=== PATIENT | female | born 1980 | race Two or more races ===

== ENCOUNTER 2020-05-26 05:55 | Emergency (ER) | payer SELFPAY ==
[~2020-05-26] VITALS: Ht 170.2 cm; Wt 79.4 kg
[2020-05-26] MEDS ORDERED: LORazepam Inj 2mg/ml 1ml IV ONE (06:00)
[2020-05-26] MEDS ORDERED: Haloperidol 5mg/ml Inj IM ONE (06:00)
--- NOTE | 2020-05-26 06:20 | NUR ---
ED Nurse Note: pt brought by 68 into the ED due to agitated delirium. Pt accompanied by [employer]. pt is A&Ox1 and no sob. pt is on monitor; vitals are stable. Iv started; blood sent to the lab. Pt refused to give urine. Tried to straight cath the pt but she kept fighting; we will try later.
[2020-05-26 06:29] LABS: BASOPHILS % (AUTO) 0.8 % (0.0-2.0); EOSINOPHILS % (AUTO) 1.1 % (0.0-3.0); HEMATOCRIT 31.1 % (37.0-47.0); HEMOGLOBIN 9.2 G/DL (12.0-16.0); LYMPHOCYTES % (AUTO) 42.2 % (20.0-45.0); MEAN CORPUSCULAR VOLUME 80 FL (80-99); MONOCYTES % (AUTO) 8.9 % (1.0-10.0); PLATELET COUNT 321 K/UL (150-450); RED BLOOD COUNT 3.88 M/UL (4.20-5.40); WHITE BLOOD COUNT 6.1 K/UL (4.8-10.8)
[2020-05-26 06:31] VITALS: BP 132/72
--- NOTE | 2020-05-26 06:45 | NUR ---
ED Nurse Note: Pt refused to give urine.
[2020-05-26 06:50] LABS: ANION GAP 13 mmol/L (5-15); BLOOD UREA NITROGEN 18 mg/dL (7-18); CALCIUM 9.8 MG/DL (8.5-10.1); CARBON DIOXIDE 22 MMOL/L (21-32); CHLORIDE 107 MMOL/L (98-107); CREATININE 1.4 MG/DL (0.55-1.30); POTASSIUM 3.8 MMOL/L (3.5-5.1); SODIUM 142 MMOL/L (136-145)
[2020-05-26 06:58] LABS: ALANINE AMINOTRANSFERASE 25 U/L (12-78); ALBUMIN 3.6 G/DL (3.4-5.0); ALBUMIN/GLOBULIN RATIO 0.9 (1.0-2.7); ALKALINE PHOSPHATASE 100 U/L (46-116); ASPARTATE AMINO TRANSFERASE 36 U/L (15-37); BILIRUBIN,TOTAL 0.3 MG/DL (0.2-1.0)
--- NOTE | 2020-05-26 07:14 | NUR ---
HAND-OFF: Report given to ADARSH Smiley
--- NOTE | 2020-05-26 08:00 | Emergency Room Report ---
History of Present Illness General Chief Complaint: Behavioral Complaint Source: Patient Present Illness HPI patient brought in by paramedics accompanied by [employer] patient found acting bizzare, agitated patient not able to provide any input she is asking to eat and apple juice appears to be under the influence no reports of suicidal or homicidal thoughts HPI is limited initially secondary to patient ability to provide history Allergies: Coded Allergies: No Known Allergies (Unverified , 05/26/20) COVID-19 Screening Contact w/high risk pt: No Experienced COVID-19 symptoms?: No COVID-19 Testing performed [employer]: No Patient History Limited by: medical condition Pertinent Family History: unable to obtain Last Menstrual Period: n/a Reviewed Nursing Documentation: PMH: Agreed; PSxH: Agreed Nursing Documentation-PMH Past Medical History: No Stated History Review of Systems All Other Systems: limited Narrative limited secondary to patient presentation and ability to provide further input Physical Exam Vital Signs Date Time Temp Pulse Resp B/P (MAP) Pulse Ox O2 Delivery O2 Flow Rate FiO2 05/26/20 05:54 97.9 98 16 142/78 (99) 99 Room Air Sp02 EP Interpretation: reviewed, normal General Appearance: mild distress - agitated, speaking in a rapid pressured speach Head: normocephalic, atraumatic Eyes: bilateral eye PERRL, bilateral eye EOMI ENT: EOM grossly intact, normal pharynx Neck: supple, thyroid normal Respiratory: lungs clear, no respiratory distress, no retraction Cardiovascular #1: regular rate, rhythm Gastrointestinal: non tender, soft Genitourinary: no CVA tenderness Musculoskeletal: back normal, normal range of motion Neurologic: other - awake, makes, eye contact. agitated. asking to eat. Psychiatric: other - agitated as above Skin: no rash, palpation normal Lymphatic: no adenopathy Procedures Critical Care Time Critical Care Time 50 minutes, for multiple exams, reevaluations, concern for deterioration Medical Decision Making Diagnostic Impression: Primary Impression: Drug abuse ER Course given history and presentation, multiple differential entertained including, but not limited to drug psychosis, mental health psychosis, metabolic and neurological considerations patient is hemodynamically stable awake appropriate air way maintained extensive testing initiated patient requiring chemical sedation and will have reevaluation patient has become oriented and awake after prolonged observation in ED Eating and drinking patient was amphetamine positive and reports drug abuse. Refusing social work. denies any homicidal or suicidal thoughts and asking to be discharged After long observation, patient is awake and oriented. Has full decision making capacity and asking for discharge Labs Test 05/26/20 06:15 05/26/20 11:20 White Blood Count 6.1 K/UL (4.8-10.8) Red Blood Count 3.88 M/UL (4.20-5.40) Hemoglobin 9.2 G/DL (12.0-16.0) Hematocrit 31.1 % (37.0-47.0) Mean Corpuscular Volume 80 FL (80-99) Mean Corpuscular Hemoglobin 23.8 PG (27.0-31.0) Mean Corpuscular Hemoglobin Concent 29.7 G/DL (32.0-36.0) Red Cell Distribution Width 17.0 % (11.6-14.8) Platelet Count 321 K/UL (150-450) Mean Platelet Volume 7.5 FL (6.5-10.1) Neutrophils (%) (Auto) 47.0 % (45.0-75.0) Lymphocytes (%) (Auto) 42.2 % (20.0-45.0) Monocytes (%) (Auto) 8.9 % (1.0-10.0) Eosinophils (%) (Auto) 1.1 % (0.0-3.0) Basophils (%) (Auto) 0.8 % (0.0-2.0) Sodium Level 142 MMOL/L (136-145) Potassium Level 3.8 MMOL/L (3.5-5.1) Chloride Level 107 MMOL/L (98-107) Carbon Dioxide Level 22 MMOL/L (21-32) Anion Gap 13 mmol/L (5-15) Blood Urea Nitrogen 18 mg/dL (7-18) Creatinine 1.4 MG/DL (0.55-1.30) Estimat Glomerular Filtration Rate 42.1 mL/min (>60) Glucose Level 80 MG/DL (74-106) Calcium Level 9.8 MG/DL (8.5-10.1) Total Bilirubin 0.3 MG/DL (0.2-1.0) Aspartate Amino Transf (AST/SGOT) 36 U/L (15-37) Alanine Aminotransferase (ALT/SGPT) 25 U/L (12-78) Alkaline Phosphatase 100 U/L (46-116) Total Protein 7.5 G/DL (6.4-8.2) Albumin 3.6 G/DL (3.4-5.0) Globulin 3.9 g/dL Albumin/Globulin Ratio 0.9 (1.0-2.7) Salicylates Level 1.4 ug/mL (2.8-20) Acetaminophen Level < 2 MCG/ML (10-30) Serum Alcohol < 3 mg/dL Urine Color Pale yellow Urine Appearance Slightly cloudy Urine pH 7 (4.5-8.0) Urine Specific [place] 1.010 (1.005-1.035) Urine Protein Negative (NEGATIVE) Urine Glucose (UA) Negative (NEGATIVE) Urine Ketones 2+ (NEGATIVE) Urine Blood Negative (NEGATIVE) Urine Nitrite Negative (NEGATIVE) Urine Bilirubin Negative (NEGATIVE) Urine Urobilinogen Normal MG/DL (0.0-1.0) Urine Leukocyte Esterase Negative (NEGATIVE) Urine HCG, Qualitative Negative (NEGATIVE) Urine Opiates Screen Negative (NEGATIVE) Urine Barbiturates Screen Negative (NEGATIVE) Phencyclidine (PCP) Screen Negative (NEGATIVE) Urine Amphetamines Screen Positive (NEGATIVE) Urine Benzodiazepines Screen Negative (NEGATIVE) Urine Cocaine Screen Negative (NEGATIVE) Urine Marijuana (THC) Screen Negative (NEGATIVE) Rhythm Strip Diag. Results EP Interpretation: yes Rate: 77 Rhythm: NSR, no PVC's, no ectopy Last Vital Signs Date Time Temp Pulse Resp B/P (MAP) Pulse Ox O2 Delivery O2 Flow Rate FiO2 05/26/20 06:31 97.0 98 16 132/72 98 Room Air Status: improved Disposition: HOME, SELF-CARE Condition: Improved Referrals: NOT CHOSEN [facility]/MD,REFERRING (PCP) Additional Instructions: follow with above mentioned clinics. Stop using drugs. Return to ER for any assistance Richar Shah DO May 26, 2020 08:00
[2020-05-26 08:31] VITALS: BP 122/80
--- NOTE | 2020-05-26 08:37 | NUR ---
ED Nurse Note:pt. is sleeping in the room, no signs of distress noted
--- NOTE | 2020-05-26 11:08 | NUR ---
ED Nurse Note:tryed to wake up pt. and have her to void, she is not willing to wake up et
--- NOTE | 2020-05-26 11:31 | NUR ---
ED Nurse Note:urine sent to labs, food provided
[2020-05-26 11:42] LABS: APPEARANCE,URINE SLIGHTLY CLOUDY; BILIRUBIN, URINE NEGATIVE (NEGATIVE); COLOR,URINE PALE YELLOW; GLUCOSE, URINE (UA) NEGATIVE (NEGATIVE); KETONES,URINE 2+ (NEGATIVE); LEUKOCYTE ESTERASE ,URINE NEGATIVE (NEGATIVE); NITRITE,URINE NEGATIVE (NEGATIVE); PH,URINE 7 (4.5-8.0); PROTEIN,URINE NEGATIVE (NEGATIVE); UROBILINOGEN,URINE NORMAL MG/DL (0.0-1.0)
[2020-05-26 14:20] VITALS: BP 126/76
[2020-05-26 15:30] VITALS: BP 126/76
--- NOTE | 2020-05-26 15:30 | NUR ---
ER DISCHARGE NOTE: Patient is cleared to be discharged per ERMD, pt is aox4, on room air, with stable vital signs. pt was given dc instructions but she refused to sign, pt id band and iv site removed without complications. pt is able to ambulate with steady gait. pt took all belongings.
== END 2020-05-26 15:32 | disposition home or self-care (01) ==
LOC: EDBD 05:55 → EMR 06:01
DX: F15.10 Other stimulant abuse, uncomplicated (principal)
CPT/HCPCS: 36415; 80053; 80307; 81003; 81025; 85025; 96361; 96372; 96374; 99291; G0480; J1630; J7030